=== PATIENT | female | born 1980 | race Caucasian/White ===

== ENCOUNTER 2016-08-24 09:55 | Emergency (ER) | payer OTHER ==
--- NOTE | 2016-08-24 10:11 | CPEKG ---
Heart Rate: 71 RR Interval: 845 P-R Interval: 172 QRSD Interval: 82 QT Interval: 392 QTC Interval: 426 P [place]: 72 QRS [place]: 79 T Wave [place]: -19 EKG Severity - BORDERLINE ECG - EKG Impression: SINUS RHYTHM EKG Impression: BORDERLINE T ABNORMALITIES, INFERIOR LEADS Electronically Signed By: Marky Ruelas 24-Aug-2016 12:41:52
[2016-08-24] MEDS ORDERED: NS 1,000 ML IV ONE ×3 (10:32→11:08)
--- NOTE | 2016-08-24 10:54 | EDPHY ---
H & P Time Seen by Provider: 08/24/16 10:53 HPI/ROS: CHIEF COMPLAINT: Syncope and head injury HISTORY OF PRESENT ILLNESS: This 36-year-old woman presents the emergency department after fainting and memory loss. She apparently has been feeling dehydrated for the past week is feeling like she can' t get enough water. She says I have been struggling with dehydration over the past week. She remembers waking up at 6:00 a.m. to go to the bathroom but then the next thing she remembers is waking up at just after 9:00 a.m. with a dog licking her face. Her boyfriend was there says she was normal until just before 9:00 a.m. when he heard a thud in the next room and went in to find her awake but having fallen and hit her head on the floor. Currently the patient is a headache. She has mild nausea. She does not remember the events between 6:00 a.m. and 9:00 a.m. REVIEW OF SYSTEMS: Eye: no change in vision ENT: no sore throat Cardiac: No chest pain Pulmonary: no cough or SOB Abdomen: no vomiting, diarrhea, abdominal pain, no black or bloody stools Musculoskeletal: Patient has had neck pain with a diagnosis of herniated disc worse over the past month and increasing over the past 4 days but unchanged right now from the last couple of days. Skin: no rash Neuro: Headache, no weakness or numbness in extremities. No vertigo or dizziness or ataxia. Constitutional: no fever : no urinary symptoms A comprehensive 10 point review of systems is otherwise negative aside from elements mentioned in the history of present illness. PAST MEDICAL HISTORY: Neck as above, breast augmentation, ovarian cyst. No PCP. Social history: No drugs or alcohol today. Had a drink last night. No family history of premature coronary disease or venous thromboembolism or premature coronary or cardiac arrest. Nonsmoker. General Appearance: Alert and conversant, cooperative. Eyes: No scleral icterus. ENT, Mouth: Normal mucous membranes. No tongue laceration or abrasion. She has a 2 cm hematoma on the left side of her occiput. Respiratory: Normal respiratory effort, breath sounds equal, lungs are clear to auscultation. Cardiovascular: Regular rate and rhythm. Gastrointestinal: Abdomen is soft and non tender. Neurological: Alert and oriented x3. Normally conversant. Face symmetric, normal movement and sensation in all extremities. No memory between 6 and 9:00 a.m. of the events of today. Not tremulous and no pronator drift and normal [id number] bilaterally. Skin: Warm and dry, no rashes. Musculoskeletal: No cervical thoracic or lumbar spine midline tenderness. Psychiatric: Not agitated. Emergency Department course/MDM: Cervical spine cleared clinically. Likely dehydration or vasovagal. Her head symptoms are almost certainly because of concussion. CT head for trauma and severe headache and retrograde amnesia, discussed and consented. Patient had IV fluid hydration. [place] better and was able to ambulate on discharge. Likely related to dehydration or vasovagal. Her hematocrit was noted to be 30 and she is referred to primary care for follow -up. I do not think this is the reason for her syncope today. She does not have signs or symptoms to suggest acute blood loss. Smoking Status: Former smoker Constitutional: Initial Vital Signs Temperature (C) 36.4 C 08/24/16 09:58 Heart Rate 72 08/24/16 09:58 Respiratory Rate 18 08/24/16 09:58 Blood Pressure 106/67 08/24/16 09:58 O2 Sat (%) 96 08/24/16 09:58 O2 Delivery Mode Room Air Allergies/Adverse Reactions: No Known Allergies Allergy (Verified 08/24/16 09:57) Home Medications: Medication Instructions Recorded NK [No Known Home Meds] 08/24/16 Medical Decision Making - Diagnostics EKG Interpretation: 12-lead EKG interpreted by me; official reading is in trace master. My interpretation is sinus rhythm, nonspecific inferior T-wave flattening. Differential Diagnosis: Differential diagnosis considered for head injury including but not limited to seizure, concussion, skull fracture, intraparenchymal contusion, subarachnoid, subdural and epidural hematoma. - Data Points Laboratory Results: Laboratory Results 08/24/16 11:20 08/24/16 10:20 08/24/16 08/24/16 11:20 10:20 WBC 9.69 H 10^3/uL REJ (3.80-9.50) RBC 3.38 L 10^6/uL REJ (4.18-5.33) Hgb 10.7 L g/dL REJ (12.6-16.3) Hct 30.6 L % REJ (38.0-47.0) MCV 90.5 fL REJ (81.5-99.8) MCH 31.7 pg REJ (27.9-34.1) MCHC 35.0 g/dL REJ (32.4-36.7) RDW 12.4 % REJ (11.5-15.2) Plt Count 244 10^3/uL REJ (150-400) MPV REJ Neut % (Auto) REJ Lymph % (Auto) REJ Sullivan % (Auto) REJ Eos % (Auto) REJ Baso % (Auto) REJ Nucleat RBC Rel Count REJ Absolute Neuts (auto) REJ Absolute Lymphs (auto) REJ Absolute Monos (auto) REJ Absolute Eos (auto) REJ Absolute Basos (auto) REJ Absolute Nucleated RBC REJ Immature Gran % REJ Immature Gran # REJ Sodium 137 mEq/L (134-144) Potassium 4.3 mEq/L (3.5-5.2) Chloride 103 mEq/L (97-110) Carbon Dioxide 22 mEq/l (22-31) Anion Gap 12 mEq/L (8-16) BUN 17 mg/dL (7-23) Creatinine 0.7 mg/dL (0.6-1.0) Estimated GFR > 60 Glucose 66 L mg/dL (70-100) Calcium 9.0 mg/dL (8.5-10.4) Beta HCG, Qual NEGATIVE Medications Given: Discontinued Medications Acetaminophen (Tylenol) 650 mg PO EDNOW ONE Stop: 08/24/16 11:19 Last Admin: 08/24/16 11:26 Dose: 650 mg Sodium Chloride (Ns) 1,000 mls @ 0 mls/hr IV ONCE ONE PRN Reason: Wide Open Stop: 08/24/16 10:33 Last Admin: 08/24/16 10:51 Dose: 1,000 mls Sodium Chloride (Ns) 1,000 mls @ 0 mls/hr IV ONCE ONE PRN Reason: Wide Open Stop: 08/24/16 11:09 Last Admin: 08/24/16 11:17 Dose: 1,000 mls Sodium Chloride (Ns) 1,000 mls @ 0 mls/hr IV ONCE ONE PRN Reason: Wide Open Stop: 08/24/16 11:09 Last Admin: 08/24/16 11:17 Dose: 1,000 mls Departure - Departure Disposition: Home, Routine, Self-Care Clinical Impression: Syncope Qualifiers: Qualifier Code: (R55) Syncope and collapse Concussion Qualifiers: Qualifier Code: (S06.0X0A) Concussion without loss of consciousness, initial encounter Anemia Qualifiers: Qualifier Code: (D64.9) Anemia, unspecified Condition: Good Instructions: Concussion (ED), Syncope (ED), Anemia (ED) Referrals: Pieter Salmeron MD [Medical Doctor] - As per Instructions (Please follow-up in the next 2 weeks with this on-call primary care provider or any other primary care physician to follow up for your anemia. Your hematocrit was slightly low at 30.) Stand Alone Forms: Work Excuse
[2016-08-24] MEDS ORDERED: ACETAMINOPHEN 325 MG TAB PO ONE (11:18)
[2016-08-24 11:19] LABS: ANION GAP 12 mEq/L (8-16); CARBON DIOXIDE 22 mEq/l (22-31); CHLORIDE 103 mEq/L (97-110); CREATININE 0.7 mg/dL (0.6-1.0); GLOMERULAR FILTRATION RATE > 60; GLUCOSE 66 mg/dL (70-100); POTASSIUM 4.3 mEq/L (3.5-5.2); SODIUM 137 mEq/L (134-144)
[2016-08-24 11:31] LABS: HEMATOCRIT 30.6 % (38.0-47.0); HEMOGLOBIN 10.7 g/dL (12.6-16.3); MEAN CELL HEMOGLOBIN 31.7 pg (27.9-34.1); MEAN CELL VOLUME 90.5 fL (81.5-99.8); RED BLOOD CELL COUNT 3.38 10^6/uL (4.18-5.33); RED CELL DISTRIBUTION WIDTH 12.4 % (11.5-15.2)
--- NOTE | 2016-08-24 11:56 | CT ---
CT Scan of the Head (Without Contrast) History: Trauma. Technique: Axial images were obtained from the base to the vertex with images reconstructed at 1.25 m m thickness. The examination was reviewed on the workstation at bone and soft tissue settings. Dose r eduction techniques were utilized. Findings: There is no midline shift, hydrocephalus, parenchymal or subarachnoid bleeding. No extraaxi al fluid collection is seen. There are no findings to suggest acute cortical ischemia. Bone window ev aluation does not show evidence of a skull fracture or pneumocephalus. There is minimal mucous membra ne thickening seen involving the maxillary sinuses bilaterally, otherwise, the paranasal sinuses and mastoids are normally aerated. Impression: Negative noncontrast CT of the head with no intracranial posttraumatic sequela identified . A preliminary report was called to Dr. Marky Ruelas at 1150 hours in the Emergency Department.
[2016-08-24 12:21] VITALS: BP 113/69; PULSE 65; RESP 18; TEMP 98.4; O2SAT 96
== END 2016-08-24 12:20 | disposition home or self-care (01) ==
DX: S06.0X0A Concussion without loss of consciousness, initial encounter (principal); D64.9 Anemia, unspecified; R55 Syncope and collapse; Z87.891 Personal history of nicotine dependence; W01.198A Fall on same level from slipping, tripping and stumbling with subsequent striking against other object, initial encounter

== ENCOUNTER 2017-01-17 20:49 | Emergency (ER) | payer OTHER ==
[2017-01-17] MEDS ORDERED: ONDANSETRON 4 MG/2 ML VIAL IVP ONE (21:17)
[2017-01-17] MEDS ORDERED: NS 1,000 ML IV ONE (21:17)
--- NOTE | 2017-01-17 21:21 | EDPHY ---
H & P Smoking Status: Former smoker Time Seen by Provider: 01/17/17 21:12 HPI/ROS: CHIEF COMPLAINT: Nausea vomiting decrease p.o. intake HISTORY OF PRESENT ILLNESS: This is a 36-year-old female presenting to the emergency department complaining of nausea vomiting and decreased p.o. intake since Friday. Patient states she is 7 weeks labs were drawn on 2016 with a quant of [id number]. Denies any abdominal cramping any vaginal bleeding. Patient states she has been able to tolerate some ice chips and some fluid, fatigue. Denies any other complaints REVIEW OF SYSTEMS: Constitutional: No fever, no chills. Decreased p.o. intake Eyes: No discharge. No Blurred vision ENT: No sore throat. Cardiovascular: No chest pain, no palpitations. Respiratory: No cough, no shortness of breath. Gastrointestinal: No abdominal pain. Nausea vomiting Genitourinary: No hematuria. Musculoskeletal: No back pain. Skin: No rashes. Neurological: No headache. (Laya Aiken) Physical Exam: General Appearance: Alert, no distress. Eyes: Pupils equal and round no pallor or injection. ENT, Mouth: Mucous membranes dry Respiratory: There are no retractions, lungs are clear to auscultation. Cardiovascular: Regular rate and rhythm. Gastrointestinal: Abdomen is soft and nontender, no masses, bowel sounds normal. Neurological: No focal deficits Skin: Warm and dry, no rashes. Musculoskeletal: Neck is supple nontender. Extremities: symmetrical, full range of motion. Psychiatric: Patient is oriented X 3, acting age appropriate (Laya Aiken) Constitutional: Initial Vital Signs Temperature (C) 36.7 C 01/17/17 20:53 Heart Rate 84 01/17/17 20:53 Respiratory Rate 16 01/17/17 20:53 Blood Pressure 107/69 01/17/17 20:53 O2 Sat (%) 99 01/17/17 20:53 O2 Delivery Mode Room Air Allergies/Adverse Reactions: No Known Allergies Allergy (Verified 01/17/17 20:51) Home Medications: Medication Instructions Recorded Iron 01/17/17 Levothyroxine 01/17/17 Multi Tablet 01/17/17 Medical Decision Making ED Course/Re-evaluation: Discussed ED plan of care: CBC, BMP, UA, IV fluids for dehydration 0: Discussed this patient with Dr. Shin sodium 109, redraw BMP to confirm sodium. 2200: Redraw sodium 110 2300: Spoke with Dr. Aguirre, due to no ICU beds in the hospital patient may have to be transferred out. Urine osmol 849, urine sodium to 2 2345: Patient to be transferred out to [facility] for ICU bed. Patient is aware of the situation, and is in agreement with plan. Not in any distress, stable, no nausea vomiting at this time no chest pain or shortness of breath ( Laya Aiken) I have evaluated and participated in the management of this patient. My co- signature indicates that I have reviewed this chart and that I agree with the findings and the plan of care as documented. My personal history and physical findings include: 36-year-old female , 7 weeks with confirmed last week by test that is in our system. She presents with persistent nausea. She has been vomiting daily throughout the early weeks of this . Yesterday she vomited 3 times. She continues with nausea, markedly diminished oral intake, and generalized fatigue. Initial sodium is 109. Redraw 110. With this level of hyponatremia she will need an ICU bed which is not available at [facility]. She is being transferred to [facility]. I have spoken with the accepting physician, Dr. Vale, and transfer is being arranged. She has been stable during her stay in the emergency department. She received 1 L of normal saline during her stay here. She has not had seizure activity. Her mentation is normal. Although can cause hyponatremia, the decrease in her sodium seems more than what I would expect due to . She is not taking any medications other than vitamins. She has no history of hypothyroidism or adrenal insufficiency. She denies the use of MDMA or other drugs that are known to produce hyponatremia. There is nothing to suggest renal failure. I do not suspect primary polydipsia. SIADH is also in the differential diagnosis. She was transferred in stable condition to a [facility]. (Bethany Shin) Differential Diagnosis: Other differential diagnosis considered but not limited to gastroenteritis, miscarriage, and electrolyte imbalance (Laya Aiken) - Data Points Laboratory Results: Laboratory Results 01/17/17 21:25 01/17/17 21:58 Medications Given: Discontinued Medications Sodium Chloride (Ns) 1,000 mls @ 0 mls/hr IV ONCE ONE PRN Reason: Wide Open Stop: 01/17/17 21:18 Last Admin: 01/17/17 21:30 Dose: 1,000 mls Ondansetron HCl (Zofran) 4 mg IVP EDNOW ONE Stop: 01/17/17 21:18 Last Admin: 01/17/17 21:30 Dose: 4 mg Departure - Departure Disposition: [facility] Clinical Impression: Hyponatremia Condition: Good Referrals: ASMITA DE LA ROSA [Primary Care Provider] - As per Instructions
[2017-01-17 21:45] LABS: ANION GAP 8 mEq/L (8-16); CALCIUM 8.4 mg/dL (8.5-10.4); CARBON DIOXIDE 18 mEq/l (22-31); CHLORIDE 83 mEq/L (97-110); CREATININE 0.5 mg/dL (0.6-1.0); GLOMERULAR FILTRATION RATE > 60; GLUCOSE 84 mg/dL (70-100)
[2017-01-17 21:47] LABS: SODIUM 109 mEq/L (134-144)
[2017-01-17 22:21] VITALS: RESP 20
[2017-01-17 22:32] LABS: HEMOGLOBIN 10.8 g/dL (12.6-16.3); MEAN CELL HEMOGLOBIN 31.9 pg (27.9-34.1); MEAN CELL VOLUME 82.6 fL (81.5-99.8); RED BLOOD CELL COUNT 3.39 10^6/uL (4.18-5.33); RED CELL DISTRIBUTION WIDTH 11.7 % (11.5-15.2)
[2017-01-17 22:40] LABS: COLOR YELLOW; LEUKOCYTE ESTERASE,URINE NEGATIVE (NEGATIVE); NITRITE,URINE NEGATIVE (NEGATIVE)
[2017-01-17 22:49] LABS: ANION GAP 6 mEq/L (8-16); CALCIUM 7.6 mg/dL (8.5-10.4); CARBON DIOXIDE 19 mEq/l (22-31); CHLORIDE 85 mEq/L (97-110); CREATININE 0.6 mg/dL (0.6-1.0); GLOMERULAR FILTRATION RATE > 60; GLUCOSE 81 mg/dL (70-100); POTASSIUM 3.5 mEq/L (3.5-5.2)
[2017-01-17 22:54] LABS: SODIUM 110 mEq/L (134-144)
[2017-01-17 23:23] LABS: MEAN CELL HEMOGLOBIN CONCENTR. 38.6 g/dL (32.4-36.7)
[2017-01-17] MEDS ORDERED: LORazepam 2 MG/ML INJ IVP ONE (23:39)
[2017-01-18 00:21] VITALS: BP 98/67; PULSE 60; TEMP 98.6; O2SAT 96
== END 2017-01-18 00:53 | disposition short-term general hospital (02) ==
DX: O99.281 Endocrine, nutritional and metabolic diseases complicating pregnancy, first trimester (principal); E87.1 Hypo-osmolality and hyponatremia; Z3A.01 Less than 8 weeks gestation of pregnancy; Z87.891 Personal history of nicotine dependence
CPT/HCPCS: 96374; J2405

== ENCOUNTER 2017-01-22 00:36 | Emergency (ER) | payer OTHER ==
[2017-01-22 01:00] LABS: % IMMATURE GRANULYOCYTES 0.5 % (0.0-1.1); ABSOLUTE IMMATURE GRANULOCYTES 0.05 10^3/uL (0.00-0.10); ADD DIFF? NO; ADD MORPH? NO; ADD SCAN? NO; ATYPICAL LYMPHOCYTE FLAG 10 (0-99); FRAGMENT RBC FLAG 0 (0-99); HEMATOCRIT 27.7 % (38.0-47.0); HEMOGLOBIN 9.8 g/dL (12.6-16.3); LEFT SHIFT FLG 0 (0-99); LIPEMIA HEMOLYSIS FLAG 90 (0-99); MEAN CELL HEMOGLOBIN 31.1 pg (27.9-34.1); MEAN CELL HEMOGLOBIN CONCENTR. 35.4 g/dL (32.4-36.7); MEAN CELL VOLUME 87.9 fL (81.5-99.8); MEAN PLATELET VOLUME 9.2 fL (8.7-11.7); PLATELET CLUMPS FLAG 0 (0-99); PLATELET COUNT 350 10^3/uL (150-400); RED BLOOD CELL COUNT 3.15 10^6/uL (4.18-5.33); RED CELL DISTRIBUTION WIDTH 12.8 % (11.5-15.2)
[2017-01-22 01:25] LABS: ALANINE AMINOTRANSFERASE 38 IU/L (9-52); ALBUMIN 4.3 g/dL (3.5-5.0); ALKALINE PHOSPHATASE 44 IU/L (38-126); ANION GAP 11 mEq/L (8-16); ASPARTATE AMINOTRANSFERASE 40 IU/L (14-46); BILIRUBIN,TOTAL 0.5 mg/dL (0.1-1.4); CALCIUM 9.4 mg/dL (8.5-10.4); CARBON DIOXIDE 19 mEq/l (22-31); CHLORIDE 98 mEq/L (97-110); CREATININE 0.6 mg/dL (0.6-1.0); GLOMERULAR FILTRATION RATE > 60; GLUCOSE 112 mg/dL (70-100); POTASSIUM 4.1 mEq/L (3.5-5.2); SODIUM 128 mEq/L (134-144); TOTAL PROTEIN 7.2 g/dL (6.3-8.2)
--- NOTE | 2017-01-22 02:44 | EDPHY ---
H & P Stated Complaint: ABD PAIN/DIARRHEA, JUST RELEASED FROM ICU FOR LOW SODIUM/ STEROID INSUFF Time Seen by Provider: 01/22/17 00:47 HPI/ROS: Chief Complaint: Abdominal pain HPI: 36-year-old woman who is currently 7 weeks complaining of low abdominal pain about 2 hours ago. Patient was recently admitted with hyponatremia and diagnosed with new onset of adrenal insufficiency. She was admitted to a [facility] ICU and started on hydrocortisone. Patient was discharged on Friday. She has been having constipation for the last 7 days. Earlier she felt constipated had an episode of diarrhea and had significant pain to a 10/10 shows describes low and cramping. She was feeling a little bit lightheaded at that time. She is now feeling much improved in her pain is done with 4 of 10 without any treatment. Has not had any vaginal bleeding or discharge. Some mild nausea. She did have an ultrasound will admit to a [facility] which your a normal intrauterine at 7 weeks. Patient states that I discharge her sodium was at 132. Denies any fevers or chills. No syncope. No chest pain or shortness of breath. No urinary symptoms. ROS: 10 point Review of Systems is negative except as noted in the HPI. PMH: Recent diagnosis of adrenal insufficiency, hypothyroidism Medications: Hydrocortisone 20 mg in the morning, 10 mg at night Levothyroxine 75 mcg daily Allergies: No known drug allergies Social History: No smoking, no alcohol, former marijuana but none since finding out she was Family History: non-contributory Physical Exam: Gen: Awake, Alert, No Distress HEENT: Nose: no rhinorrhea Eyes: PERRLA, EOMI Mouth: Moist mucosa Neck: Supple, no JVD Chest: nontender, lungs clear to auscultation Heart: S1, S2 normal, no murmur Abd: Soft, very mild low mid pelvic tenderness to palpation, no guarding Back: no CVA tenderness, no midline tenderness Ext: no edema, non-tender Skin: no rash Neuro: CN II-XII intact, Sensation grossly intact, Strength 5/5 in bilateral upper and lower extremities - Personal History Current Tetanus/Diphtheria Vaccine: Unsure Tetanus Vaccine Date: < 10 years - Medical/Surgical History Hx Asthma: No Hx Chronic Respiratory Disease: No Hx Diabetes: No Hx Cardiac Disease: No Hx Renal Disease: No Hx Cirrhosis: No Hx Alcoholism: No Hx HIV/AIDS: No Hx Splenectomy or Spleen Trauma: No Other PMH: breast augmentation, ovarian cysts, hypothyroid, anemia, STEROID INSUFF - Social History Smoking Status: Former smoker Constitutional: Initial Vital Signs Heart Rate 81 01/22/17 00:36 Respiratory Rate 22 H 01/22/17 00:36 Blood Pressure 109/65 01/22/17 00:36 O2 Sat (%) 98 01/22/17 00:36 O2 Delivery Mode Room Air Allergies/Adverse Reactions: No Known Allergies Allergy (Verified 01/17/17 20:51) Home Medications: Medication Instructions Recorded Iron 01/17/17 Levothyroxine 01/17/17 Multi Tablet 01/17/17 Hydrocortisone 01/22/17 Unisom 01/22/17 Medical Decision Making - Diagnostics Imaging Results: Pelvic ultrasound shows a 9 week 2 day IUP. There is a tiny old appearing subchronic hemorrhage. No other acute findings per Dr. Ríos. Imaging: Discussed imaging studies w/ research and development chemist Radiologist ED Course/Re-evaluation: 0320 patient is now pain free after receiving no treatment emergency department. Repeat examination shows a soft benign abdomen. Pelvic ultrasound shows a viable 9 week 2 day IUP. Patient is otherwise well-appearing. Laboratory evaluations while slightly abnormal are consistent with her discharge yesterday from a [facility]. She has an appointment to follow up with her jaw skinner tomorrow. Will discharge with follow-up as planned, with instructions return for any worsening symptoms. - Data Points Laboratory Results: Laboratory Results 01/22/17 00:30 01/22/17 00:30 01/22/17 01/22/17 00:30 00:30 WBC 9.57 10^3/uL H 10^3/uL (3.80-9.50) RBC 3.15 10^6/uL L 10^6/uL (4.18-5.33) Hgb 9.8 g/dL L g/dL (12.6-16.3) Hct 27.7 % L % (38.0-47.0) MCV 87.9 fL fL (81.5-99.8) MCH 31.1 pg pg (27.9-34.1) MCHC 35.4 g/dL g/dL (32.4-36.7) RDW 12.8 % % (11.5-15.2) Plt Count 350 10^3/uL 10^3/uL (150-400) MPV 9.2 fL fL (8.7-11.7) Neut % (Auto) 58.6 % % (39.3-74.2) Lymph % (Auto) 32.6 % % (15.0-45.0) [place]aines % (Auto) 7.4 % % (4.5-13.0) Eos % (Auto) 0.6 % % (0.6-7.6) Baso % (Auto) 0.3 % % (0.3-1.7) Nucleat RBC Rel Count 0.0 % % (0.0-0.2) Absolute Neuts (auto) 5.60 10^3/uL 10^3/uL (1.70-6.50) Absolute Lymphs (auto) 3.12 10^3/uL H 10^3/uL (1.00-3.00) Absolute Monos (auto) 0.71 10^3/uL 10^3/uL (0.30-0.80) Absolute Eos (auto) 0.06 10^3/uL 10^3/uL (0.03-0.40) Absolute Basos (auto) 0.03 10^3/uL 10^3/uL (0.02-0.10) Absolute Nucleated RBC 0.00 10^3/uL 10^3/uL (0-0.01) Immature Gran % 0.5 % % (0.0-1.1) Immature Gran # 0.05 10^3/uL 10^3/uL (0.00-0.10) Sodium 128 mEq/L L mEq/L (134-144) Potassium 4.1 mEq/L mEq/L (3.5-5.2) Chloride 98 mEq/L mEq/L (97-110) Carbon Dioxide 19 mEq/l L mEq/l (22-31) Anion Gap 11 mEq/L mEq/L (8-16) BUN 10 mg/dL mg/dL (7-23) Creatinine 0.6 mg/dL mg/dL (0.6-1.0) Estimated GFR > 60 Glucose 112 mg/dL H mg/dL (70-100) Calcium 9.4 mg/dL mg/dL (8.5-10.4) Total Bilirubin 0.5 mg/dL mg/dL (0.1-1.4) AST 40 IU/L IU/L (14-46) ALT 38 IU/L IU/L (9-52) Alkaline Phosphatase 44 IU/L IU/L (38-126) Total Protein 7.2 g/dL g/dL (6.3-8.2) Albumin 4.3 g/dL g/dL (3.5-5.0) Beta HCG, Quant 392386.00 mIU/mL H mIU/mL (0-4.83) Departure - Departure Disposition: Home, Routine, Self-Care Clinical Impression: Abdominal pain Condition: Good Instructions: Abdominal Pain (ED) Additional Instructions: Follow up with your jaw skinner as scheduled tomorrow. Return to the emergency depart for increasing pain, nausea, vomiting, vaginal bleeding, fainting, or any other concerns. Referrals: ASMITA DE LA ROSA [Primary Care Provider] - As per Instructions
[2017-01-22 03:46] VITALS: BP 102/65; PULSE 74; RESP 16; TEMP 99.1; O2SAT 97
== END 2017-01-22 03:46 | disposition home or self-care (01) ==
LOC: EDBD → EDUNIT#
DX: O26.891 Other specified pregnancy related conditions, first trimester (principal); R10.2 Pelvic and perineal pain; Z3A.49 Greater than 42 weeks gestation of pregnancy; Z87.891 Personal history of nicotine dependence